=== PATIENT | male | born 1945 | race Caucasian/White ===

== ENCOUNTER 2018-03-24 13:11 | Inpatient (IN) | payer OTHER, BC ==
[~2018-03-24] VITALS: Ht 180.3 cm; Wt 167.8 kg
[2018-03-24] MEDS ORDERED: ELIQUIS5 MG (14:56)
[2018-03-24] MEDS ORDERED: AMIODARONE150 MG/101 (14:57)
[2018-03-24] MEDS ORDERED: NOVOLOG100 UNIT/1 (14:58)
[2018-03-24] MEDS ORDERED: VICTOZA 3-0.6 MG/0.1 (14:59)
[2018-03-24] MEDS ORDERED: HUMALOG100 UNIT/1 (14:59)
[2018-03-24] MEDS ORDERED: LANTUS SOL100 UNIT/1 (14:59)
--- NOTE | 2018-03-24 15:08 | NUR ---
PACIENTE ALERTA,ACTIVO Y ORIENTADO,REFIERE RESULTADO DE LABORATIORIO CON NIVELES ANOSMALES.REFIERE DOLOR ABDOMINAL,PELVICO Y CALENTON EN AREA DEL PECHO DESDE EL FUNMI.
--- NOTE | 2018-03-24 17:43 | NUR ---
SE ORIENTA A PACIENE SOBRE ORDENES MEDICAS. SE COLOCA IV FLUID, CANALIZA PACIENTE Y COLECTAN MUESTRAS DE LABORATORIO ORDENADAS BAJO MEDIDAS ASEPTICAS. PENDIENTE A RESULTADOS DE LABORATORIO PARA RE-EVALUACION MEDICA.
--- NOTE | 2018-03-24 19:34 | NUR ---
SE UBICA PTE EN CAMA CON BARANDAS ELEVADAS,SE INSERA ANTUNEZ BAJO MEDIDAS ASEPTICAS.
[2018-03-29] MEDS ORDERED: ELIQUIS2.5 MG PO (17:24)
[2018-03-29] MEDS ORDERED: AMIODARONE HCL200 MG PO (17:25)
[2018-03-29] MEDS ORDERED: CARAFATE1 GM PO (17:25)
[2018-03-29] MEDS ORDERED: PROTONIX40 MG PO (17:26)
== END 2018-03-29 17:38 | disposition home or self-care (01) | DRG 699 ==
LOC: ER 13:11 → MEDI 19:59 → SEC-K 19:59 → MEDI 22:03
PROVIDERS: ADMIT Student in an Organized Health Care Education/Training Program
PROC: BT4JZZZ Ultrasonography of Kidneys and Bladder (ICD-10-PCS; 2018-03-24)
PROC: 4A033R1 Measurement of Arterial Saturation, Peripheral, Percutaneous Approach (ICD-10-PCS; 2018-03-24)
PROC: 0T9B70Z Drainage of Bladder with Drainage Device, Via Natural or Artificial Opening (ICD-10-PCS; 2018-03-24)
PROC: 0DB28ZX Excision of Middle Esophagus, Via Natural or Artificial Opening Endoscopic, Diagnostic (ICD-10-PCS; principal; 2018-03-28)
DX: E11.22 Type 2 diabetes mellitus with diabetic chronic kidney disease (principal); L00-L99 Diseases of the skin and subcutaneous tissue; K22.10 Ulcer of esophagus without bleeding; E11.65 Type 2 diabetes mellitus with hyperglycemia; N17.8 Other acute kidney failure; I12.9 Hypertensive chronic kidney disease with stage 1 through stage 4 chronic kidney disease, or unspecified chronic kidney disease; N18.3 Chronic kidney disease, stage 3 (moderate); Z79.4 Long term (current) use of insulin; I48.2 Chronic atrial fibrillation; Z79.01 Long term (current) use of anticoagulants; E66.01 Morbid (severe) obesity due to excess calories; Z95.5 Presence of coronary angioplasty implant and graft; R13.19 Other dysphagia